=== PATIENT | female | born 1985 | race Caucasian/White ===

== ENCOUNTER 2016-11-03 10:46 | Emergency (ER) | payer SELFPAY ==
[~2016-11-03] VITALS: Ht 162.6 cm; Wt 58.0 kg
[2016-11-03] MEDS ORDERED: CefTRIAXone SODIUM 1 GM/VIAL IM ONE (12:00)
[2016-11-03] MEDS ORDERED: LIDOCAINE HCL/PF 1% 2 ML VIAL IM ONE (12:00)
[2016-11-03 12:26] VITALS: BP 123/68
== END 2016-11-03 12:42 | disposition home or self-care (01) ==
LOC: EMS 10:52
DX: L02.01 Cutaneous abscess of face (principal); L03.211 Cellulitis of face; F17.210 Nicotine dependence, cigarettes, uncomplicated
CPT/HCPCS: 96372; 99283; J0696; J3490